=== PATIENT | female | born 1955 | race Caucasian/White ===

== ENCOUNTER 2025-04-26 06:40 | Emergency (ER) | payer MEDICARE, BC ==
[~2025-04-26] VITALS: Ht 162.6 cm; Wt 85.7 kg
--- NOTE | 2025-04-26 06:46 | ELECTROCARDIOGRAPH REPORT ---
[facility] Test Date: 2025-04-26 Test Time: 06:44:58 Pat Name: CARY MCKNIGHT Department: EMERGENCY ROOM [id number] Room: Gender: F Wic Site Coordinator: ANDREW : 1955 Requested By: JAYLEN SOTO Order Number: [id number] Reading MD: Dr. Luis A Weber Measurements Intervals [place] Rate: 84 P: 58 ID: [id number] QRS: 76 QRSD: 108 T: 52 QT: 381 QTc: 451 Interpretive Statements Sinus rhythm ST elevation, consider inferior injury Baseline wander in lead(s) V1 Electronically Signed On 05-03-2025 18:42:[address] Luis A Weber Please click the below link to view image of tracing.
--- NOTE | 2025-04-26 07:06 | RADIOLOGY REPORT ---
EXAM: XR Chest, 1 View CLINICAL INDICATION: Pain TECHNIQUE: Frontal view of the chest. COMPARISON: No relevant prior studies available. FINDINGS: LUNGS AND PLEURAL SPACES: Unremarkable. No consolidation. No pneumothorax. HEART: Unremarkable. No cardiomegaly. MEDIASTINUM: Unremarkable. Normal mediastinal contour. BONES/JOINTS: Unremarkable. No acute fracture. IMPRESSION: No acute cardiopulmonary process.
[2025-04-26 07:35] LABS: BASOPHILS # (AUTO) 0.1 X10'3 (0-0.2); BASOPHILS % (AUTO) 0.8 % (0-1); EOSINOPHILS # (AUTO) 0.1 X10'3 (0-0.9); EOSINOPHILS % (AUTO) 0.8 % (0-6); HEMATOCRIT 39.9 % (35.0-45.0); HEMOGLOBIN 13.4 g/dl (12.0-16.0); LYMPHOCYTES # (AUTO) 1.3 X10'3 (1.1-4.8); LYMPHOCYTES % (AUTO) 13.8 % (21-51); MEAN CORPUSCULAR HEMOGLOBIN 26.7 PG (27.0-31.0); MEAN CORPUSCULAR HGB CONC 33.4 g/dL (33.0-36.5); MEAN CORPUSCULAR VOLUME 79.9 FL (78-98); MEAN PLATELET VOLUME 8.3 FL (7.4-10.4); MONOCYTES % (AUTO) 11.3 % (2-12); NEUTROPHILS # (AUTO) 6.7 X10'3 (1.8-7.7); NEUTROPHILS % (AUTO) 73.3 % (42-75); PLATELET COUNT 220 X10'3 (140-440); RED CELL DISTRIBUTION WIDTH 17.7 % (11.5-14.5); WHITE BLOOD COUNT 9.2 X10'3 (4.5-11.0)
[2025-04-26 07:57] LABS: ALBUMIN 3.6 G/DL (3.4-5.0); ANION GAP 6 (8-16); BLOOD UREA NITROGEN 16 MG/DL (7-18); BUN/CREATININE RATIO 22.5 (10.0-20.0); CALCIUM 8.9 MG/DL (8.5-10.1); CHLORIDE 104 MMOL/L (99-107); CREATININE 0.71 MG/DL (0.40-0.90); GLUCOSE 110 MG/DL (70-104); POTASSIUM 3.6 MMOL/L (3.5-5.1); PRO BRAIN NATRIURETIC PEPTIDE 236 PG/ML (0-125); SODIUM 137 MMOL/L (135-145); TOTAL CARBON DIOXIDE 26.6 MMOL/L (24-32); eCRCL 64 ML/MIN; eGFR 81 ML/MIN
[2025-04-26] MEDS ORDERED: iohexol 350MG/ML 100ml bottle IV ONE (08:10)
--- NOTE | 2025-04-26 09:13 | RADIOLOGY REPORT ---
CTA Chest with intravenous contrast INDICATION: chest pain, h/o DVT COMPARISON: None TECHNIQUE: Multidetector spiral CTA of the chest was performed of the chest with intravenous contrast . PULMONARY ANGIOGRAPHY PROTOCOL was utilized using a bolus-tracking technique centered on the main p ulmonary artery. Axial, coronal and sagittal multiplanar and MIP reformats were performed. CONTRAST: Type of contrast: Omni 350 Contrast injected: 100 ml Radiation dose : Chest: CTDI volume is 23 mGy. Dose-length product is 888 mGy*cm The dose indicators for CT are the volume computed Tomography (CT) dose Index (CTDIvol) and the dose Length product (DLP), and are measured in units of mGy and mGy-cm, respectively. These indicators are not patient dose, but values generated from the CT scanner acquisition factors. The report includes radiation exposure data for exposures received during this examination. Findings: Pulmonary artery: No pulmonary embolism Lower neck: Right thyroid is atrophic or absent. Lungs: Atelectasis and scarring in the medial right lung base. No suspicious nodule or consolidation. Heart/Vascular Structures: Normal heart size. No pericardial effusion. Lymph Nodes: No adenopathy Pleura: No pleural effusion or significant pneumothorax. Musculoskeletal: No acute osseous abnormality. Soft tissues: Normal. Upper abdomen: Large paraesophageal hiatal hernia. IMPRESSION: 1. No pulmonary embolism. 2. No acute thoracic finding. 3. Large paraesophageal hiatal hernia. HS:Y
--- NOTE | 2025-04-26 09:20 | Physician Documentation ---
History of Present Illness ~ Chief Complaint: Chest Pain Stated Complaint: CHEST PAIN Time Seen by MD: 06:53 Primary Medical Doctor: [facility] Mode of Arrival: Ambulatory, Dropped Off HPI 69 year old female with chest discomfort (sternal, nonradiating, fullness). She has a recent diagnosis of a left lower extremity DVT and is on a DOAC. She is concerned about a pulmonary embolus. Denies fever, cough, N/V/D. Medication Reconciliation Allergies: Coded Allergies: Penicillins (Verified Allergy, Unknown, 05/09/17) Past Medical History Past Medical History: Hypertension, GERD, Arthritis Past Surgical History: no surgical history Alcohol Use: None Drug Use: none Lives with: Family Lives In: Home Review of Systems All Other Systems at this time: Reviewed and Negative Physical Exam Vital Signs: RN Vital Signs have been reviewed: Yes, Temperature: 98.1, Source: Oral, Heart Rate: 81, Respiratory Rate: 19, BP: 130/84, Pulse Oximetry: 97, Weight: 85.700 Oxygen Flow Rate: 0 Physical Exam HEENT: PERRL, moist oral mucosa, EOMI Pulmonary: No respiratory distress Cardiac: RRR, no murmur, rub or gallop MSK: no deformity Skin: w/d/i, no rash Neuro: alert, nonfocal Psych: normal affect Progress Results/Orders Reviewed/noted all lab results: Yes Results/Orders Orders - JAYLEN SOTO MD Chest,Single View (04/26/25 06:44) Monitor (04/26/25 06:44) Saline Lock (04/26/25 06:44) Oxygen (04/26/25 06:44) Hs Troponin I W Calculations (04/26/25 09:44) Cta Chest Pe (04/26/25 08:39) Completed Orders - JAYLEN SOTO MD Electrocardiogram (04/26/25 06:41) Chest,Single View (04/26/25 06:44) Cbc/Diff (04/26/25 06:44) BMP (04/26/25 06:44) PBNP (04/26/25 06:44) Hs Troponin I W Calculations (04/26/25 06:44) Hs Troponin I W Calculations (04/26/25 08:44) Cta Chest Pe (04/26/25 08:39) Iohexol 350mg/Ml 100ml (Omnipaque 350mg/ (04/26/25 08:10) Vital Signs 04/26/25 04/26/25 04/26/25 04/26/25 06:46 07:18 07:22 08:00 Temp 98.1 Pulse 78 77 77 Resp 16 18 15 B/P (MAP) 143/80 118/75 (89) 117/73 (88) Pulse Ox 96 100 96 O2 Flow Rate 0 0 0 04/26/25 09:18 Pulse 81 Resp 19 B/P (MAP) 130/84 (99) Pulse Ox 97 O2 Flow Rate 0 Laboratory Tests Test 04/26/25 07:23 04/26/25 08:39 White Blood Count 9.2 Red Blood Count 5.00 Hemoglobin 13.4 Hematocrit 39.9 Mean Corpuscular Volume 79.9 Mean Corpuscular Hemoglobin 26.7 L Mean Corpuscular Hemoglobin Concent 33.4 Red Cell Distribution Width 17.7 H Platelet Count 220 Mean Platelet Volume 8.3 Neutrophils (%) (Auto) 73.3 Lymphocytes (%) (Auto) 13.8 L Monocytes (%) (Auto) 11.3 Eosinophils (%) (Auto) 0.8 Basophils (%) (Auto) 0.8 Neutrophils # (Auto) 6.7 Lymphocytes # (Auto) 1.3 Monocytes # (Auto) 1.0 H Eosinophils # (Auto) 0.1 Basophils # (Auto) 0.1 CBC Comment Sodium Level 137 Potassium Level 3.6 Chloride Level 104 Carbon Dioxide Level 26.6 Anion Gap 6 L Blood Urea Nitrogen 16 Creatinine 0.71 Estimated GFR/1.73 m2 81 BUN/Creatinine Ratio 22.5 H Glucose Level 110 H Calcium Level 8.9 Troponin I High Sensitivity 14 12 Pro-B-Type Natriuretic Peptide 236 H Albumin 3.6 Chemistry Comments Troponin I High Sens Percent Delta 14 Troponin I Hi Sens Absolute Change -2 EKG/XRAY/CT/US/VASC/MRI EKG : Additional Comment My interpretation: NSR, 84/minute, no dysrythmia, no STEMI criteria Chest X-Ray : Views: 1 VIEW Indication: chest pain Lungs: normal Mediastinum: normal Ribs/Bones: normal Abdomen: normal Impression: no acute disease Medical Decision Making Findings 69 year old female with epigastric/chest pain. Exam and vitals, workup unremarkable other than for hiatal hernia which is likely the cause of her symptoms. Discharged with return precautions. Differential Dx:Considerations: Include: angina, chest wall pain, cholelithiasis, myocardial infarction, pericarditis, pancreatitis, pneumonia, p neumothorax, pulmonary embolus Departure Disposition: HOME / SELF CARE / HOMELESS Impression: Primary Impression: Hiatal hernia Condition: Stable Discharge Instructions: Nonspecific Chest Pain, Adult Referrals: NO PRIMARY CARE PROVIDER (PCP) Education Educated: Patient Educated regarding: diagnosis, treatment, prognosis, need for follow up Additional Comment Additional Comment Offered admission for further chest pain workup. Patient adamantly refused despite thorough discussion of risks/benefits. Signature Scribe Signature: . Attestation: . JAYLEN SOTO MD Apr 26, 2025 09:20
[2025-04-26 09:52] VITALS: BP 130/84; PULSE 74; RESP 18; TEMP 98.1; O2SAT 100
== END 2025-04-26 09:50 | disposition home or self-care (01) ==
LOC: ER 06:40
DX: K44.9 Diaphragmatic hernia without obstruction or gangrene (principal); I10 Essential (primary) hypertension; M19.90 Unspecified osteoarthritis, unspecified site; K21.9 Gastro-esophageal reflux disease without esophagitis; R06.02 Shortness of breath; Z88.0 Allergy status to penicillin
CPT/HCPCS: 36415; 71045; 71275; 80048; 83880; 84484; 85025; 93005; 99285; Q9967